=== PATIENT | male | born 1970 | race American Indian/Alaskan Native ===

== ENCOUNTER 2021-07-26 09:10 | Emergency (ER) | payer OTHER ==
[~2021-07-26] VITALS: Ht 175.3 cm; Wt 135.2 kg
[~2021-07-26 09:10] MED LIST: BACTRIM DS TAB1 EACH PO; DILAUDID4 MG PO; HYDROCHLOROTH12.5 M1 PO; IBUPROFEN400 MG PO; MILK OF MA400 MG/5 M PO; OMEPRAZOLE20 MG PO; PERCOCET 10-321 EACH PO; PRILOSEC20 MG PO; SENNA-DOCUSATE1 EAC1 PO; TYLENOL325 MG PO
[2021-07-26] MEDS ORDERED: FAMCICLOVIR500 MG PO (14:04)
[2021-07-26] MEDS ORDERED: PREDNISONE20 MG PO (14:04)
== END 2021-07-26 14:38 | disposition home or self-care (01) ==
LOC: ED 09:10
DX: G51.0 Bell's palsy (principal); I10 Essential (primary) hypertension; Z88.5 Allergy status to narcotic agent
CPT/HCPCS: 36415; 70450; 70496; 70498; 70551; 80053; 85025; J7512; Q9967